=== PATIENT | female | born 1990 | race Caucasian/White ===

== ENCOUNTER 2017-12-04 18:05 | Emergency (ER) | payer SELFPAY, OTHER, MEDICAID ==
[2017-12-04 19:50] LABS: ADD MAN DIFF? NO
[2017-12-04 19:58] LABS: WHITE BLOOD COUNT 10.8 10^3/ul (4.8-10.8)
[2017-12-04 19:58] LABS: BASOPHIL # 0.1 10^3/ul (0.0-0.1); BASOPHILS % 0.6 % (0.0-2.0); EOSINOPHILS # 0.1 10^3/ul (0.0-0.5); HEMATOCRIT 44.2 % (37.0-47.0); HEMOGLOBIN 14.6 g/dl (12.0-16.0); LYMPHOCYTES # 2.9 10^3/ul (0.8-2.9); LYMPHOCYTES % 27.1 % (15.0-51.0); MEAN CORPUSCULAR HEMOGLOBIN 27.5 pg (29.0-33.0); MEAN CORPUSCULAR VOLUME 83.2 fl (82.0-101.0); MEAN PLATELET VOLUME 9.1 fl (7.4-10.4); MONOCYTE # 0.8 10^3/ul (0.3-0.9); MONOCYTES % 7.5 % (0.0-11.0); NEUTROPHIL # 6.8 10^3/ul (1.6-7.5); NEUTROPHILS % 63.2 % (39.0-77.0); PLATELET COUNT 271 10^3/UL (140-415); RED BLOOD COUNT 5.31 10^6/ul (4.20-5.40); RED CELL DISTRIBUTION WIDTH 12.6 % (11.5-14.5)
[2017-12-04 20:02] LABS: URINE BLOOD (Dip) POC Trace-lysed (NEGATIVE); URINE GLUCOSE (Dip) POC Negative (NEGATIVE); URINE KETONES (Dip) POC Negative (NEGATIVE); URINE LEUKOCYTE EST (Dip) POC Negative (NEGATIVE); URINE NITRITE (Dip) POC Negative (NEGATIVE); URINE TOTAL PROTEIN POC Trace (NEGATIVE)
[2017-12-04 20:02] LABS: URINE PH (Dip) POC 5.5 (5.0-8.5)
[2017-12-04] MEDS: IBUPROFEN 600 MG TAB PO (20:13)
[2017-12-04 20:30] LABS: ALANINE AMINOTRANSFERASE 52 IU/L (13-69); ALBUMIN 4.5 g/dl (3.3-4.9); ALBUMIN/GLOBULIN RATIO 1.25; ALKALINE PHOSPHATASE 125 IU/L (42-121); ANION GAP 16 (8-16); ASPARTATE AMINO TRANSFERASE 22 IU/L (15-46); BILIRUBIN,INDIRECT 0.8 mg/dl (0-1.1); BILIRUBIN,TOTAL 0.8 mg/dl (0.2-1.3); BLOOD UREA NITROGEN 8 mg/dl (7-20); CALCIUM 9.5 mg/dl (8.4-10.2); CARBON DIOXIDE 23 mmol/L (21-31); CHLORIDE 108 mmol/L (97-110); CREATININE 0.53 mg/dl (0.44-1.00); GLUCOSE 86 mg/dl (70-220); LIPASE 70 U/L (23-300); POTASSIUM 3.8 mmol/L (3.5-5.1); SODIUM 143 mmol/L (135-144); TOTAL PROTEIN 8.1 g/dl (6.1-8.1)
== END 2017-12-04 21:25 | disposition home or self-care (01) ==
LOC: FTE 21:25
DX: N83.202 Unspecified ovarian cyst, left side (principal); N85.8 Other specified noninflammatory disorders of uterus; R10.2 Pelvic and perineal pain; R40.2412 Glasgow coma scale score 13-15, at arrival to emergency department
CPT/HCPCS: 36415; 76856; 80053; 81003; 81025; 83690; 85025; 99284-25

== ENCOUNTER 2018-09-17 19:55 | Emergency (ER) | payer MEDICAID, OTHER ==
[2018-09-18] MEDS: IBUPROFEN 600 MG TAB PO (01:04)
[2018-09-18] MEDS: ACETAMINOPHEN 325 MG TAB PO (01:04)
== END 2018-09-18 01:15 | disposition home or self-care (01) ==
LOC: FTE 09-18 01:15
DX: R05 Cough (principal)
CPT/HCPCS: 71046; 99283-25